=== PATIENT | male | born 1955 | race Caucasian/White ===

== ENCOUNTER 2016-12-24 15:36 | Emergency (ER) | payer OTHER ==
[~2016-12-24] VITALS: Ht 182.9 cm; Wt 63.5 kg
[~2016-12-24 15:36] MED LIST: ALPRAZOLAM PO; LORTAB 10/500 T1 TAB PO; MEVACOR PO; UNKNOWN INHALER; ZOLOFT PO
== END 2016-12-24 21:00 | disposition left against medical advice (07) ==
LOC: CED 15:36
DX: Z53.21 Procedure and treatment not carried out due to patient leaving prior to being seen by health care provider (principal)